=== PATIENT | male | born 1995 | race Caucasian/White ===

== ENCOUNTER 2017-09-30 09:27 | Emergency (ER) | payer OTHER ==
--- NOTE | 2017-09-30 10:49 | EDM.PDOC ---
ED HPI GENERAL MEDICAL PROBLEM - General Chief Complaint: Upper Extremity Injury/Pain Stated Complaint: [id number] WC TORE SOMETHING IN RIGHT SHOULDER Time Seen by Provider: 09/30/17 09:55 Source of Information: Reports: Patient, RN, RN Notes Reviewed History Limitations: Reports: No Limitations - History of Present Illness INITIAL COMMENTS - FREE TEXT/NARRATIVE: Pt presents to the ER with c/o right shoulder pain. Patient states he works for a [employer] and was lifting a log this morning and felt something tear or pop in his right shoulder. Patient states he has an ache of 6/10 in the right shoulder. He admits to numbness and tingling in the right hand/fingers. Patient is right handed. He states he cannot lift his elbow or arm out or up. Onset: Today, Sudden Duration: Constant Location: Reports: Upper Extremity, Right Quality: Reports: Ache Severity: Moderate Improves with: Reports: Rest Worsens with: Reports: Movement Right Upper Shoulder Pain Score (Numeric/FACES): 6 - Related Data Allergies Allergy/AdvReac Type Severity Reaction Status Date / Time No Known Allergies Allergy Verified 09/30/17 09:48 Home Meds: Home Meds . [No Known Home Meds] 09/30/17 [History] Past Medical History - Past Surgical History HEENT Surgical History: Reports: Tonsillectomy Social & Family History - Tobacco Use Smoking Status *Q: Never Smoker - Caffeine Use Caffeine Use: Reports: Coffee, Soda - Alcohol Use Days Per Week of Alcohol Use: 1 Number of Drinks Per Day: 1 Total Drinks Per Week: 1 - Recreational Drug Use Recreational Drug Use: No Review of Systems - Review of Systems Review Of Systems: ROS reveals no pertinent complaints other than HPI. ED EXAM, GENERAL - Physical Exam Exam: See Below Exam Limited By: No Limitations General Appearance: Alert, WD/WN, No Apparent Distress Eye Exam: Bilateral Eye: EOMI, Normal Inspection, PERRL Ears: Normal External Exam, Hearing Grossly Normal Nose: Normal Inspection Throat/Mouth: Normal Inspection, Normal Voice, No Airway Compromise Head: Atraumatic, Normocephalic Neck: Normal Inspection, Supple, Non-Tender, Full Range of Motion Respiratory/Chest: No Respiratory Distress, Lungs Clear, Normal Breath Sounds, No Accessory Muscle Use, Chest Non-Tender Cardiovascular: Normal Peripheral Pulses, Regular Rate, Rhythm, No Edema, No Gallop, No JVD, No Murmur, No Rub Peripheral Pulses: 2+: Brachial (L), Brachial (R) GI/Abdominal: Normal Bowel Sounds, Soft, Non-Tender, No Organomegaly, No Distention, No Abnormal Bruit, No Mass (Male) Exam: Deferred Rectal (Males) Exam: Deferred Back Exam: Normal Inspection, Full Range of Motion Extremities: Normal Inspection, No Pedal Edema, Arm Pain (right shoulder), Limited Range of Motion (right arm/shoulder) Neurological: Alert, Oriented, CN II-XII Intact, Normal Cognition, Normal Gait, Normal Reflexes, No Motor/Sensory Deficits Psychiatric: Normal Affect, Normal Mood Skin Exam: Warm, Dry, Intact, Normal Color, No Rash Lymphatic: No Adenopathy Course - Vital Signs Last Recorded V/S: Last Vital Signs Temp 98.1 F 09/30/17 09:41 Pulse 64 09/30/17 09:41 Resp 16 09/30/17 09:41 BP 138/77 09/30/17 09:41 Pulse Ox 100 09/30/17 09:41 - Radiology Interpretation Free Text/Narrative:: Right shoulder xray: Subtle abnormality suggesting capsular injury. No fracture or acute glenohumeral dislocation See rad report Departure - Departure Time of Disposition: 10:47 Disposition: Home, Self-Care 01 Condition: Fair Clinical Impression: Muscle strain of right shoulder Qualifiers: Encounter type: initial encounter Qualified Code(s): S46.911A - Strain of unspecified muscle, fascia and tendon at shoulder and upper arm level, right arm , initial encounter - Discharge Information Instructions: Muscle Strain, [id number] Referrals: PCP,None [Primary Care Provider] - Forms: ED Department Discharge Additional Instructions: RX: Diclofenac Follow up with your primary care facility, I recommend outpatient rehab therapy Do not take Ibuprofen while taking Diclofenac May also use Tylenol for pain
--- NOTE | 2017-09-30 11:25 | CR ---
Clinical history: 21-year-old male who injured right shoulder "lifting a log". Pain and decreased ran ge of motion. Interpretation: The humeral head appears slightly subluxed relative to the glenoid of the scapula suggesting capsular damage (tear?). No juxta-articular rotator cuff tendon calcification and no sign of pathologic skeletal lesion, right shoulder fracture or acute acromioclavicular separation. Right lung apex clear (underlying ribs are unremarkable). CONCLUSION: Subtle abnormality suggesting capsular injury. No fracture or acute glenohumeral dislocat ion.
== END 2017-09-30 11:02 | disposition home or self-care (01) ==
LOC: DL.ED 09:27
DX: S46.911A Strain of unspecified muscle, fascia and tendon at shoulder and upper arm level, right arm, initial encounter (principal); X50.0XXA Overexertion from strenuous movement or load, initial encounter
CPT/HCPCS: 73030-RT; 99283